=== PATIENT | female | born 1960 | race Caucasian/White ===

== ENCOUNTER 2019-12-04 10:57 | Day surgery (SDC) | payer OTHER ==
[~2019-12-04 10:57] MED LIST: Cefuroxime 10 MG/ML SYRINGE EYERT SCH; Lidocaine 1% PF 2 ML SDV INJECT SCH; Pilocarpine 4% Ophth Soln 15 ML Bot EYERT SCH
[2019-12-04] MEDS: Polymyxin B/Trimethoprim 10 ML Bottle EYERT SCH ×3 (11:05→13:23)
[2019-12-04] MEDS: Brimonidine 0.2% Ophth Soln 5 ML Bottle EYERT SCH ×3 (11:10→13:23)
[2019-12-04] MEDS: Phenylephrine 2.5% Ophth Soln 2 ML Bot EYERT SCH ×5 (11:15→13:02)
[2019-12-04] MEDS: Tropicamide 1% Ophth Soln 15 ML Bottle EYERT SCH ×4 (11:20→12:01)
[2019-12-04] MEDS: Tetracaine HCl/PF 0.5% 4 ML Bottle EYEBOTH SCH ×4 (12:04→13:11)
--- NOTE | 2019-12-04 12:30 | PCM.PREANE ---
Preanesthetic Assessment - Procedure Proposed Procedure: right eye cataract extraction with IOL implant - Anesthesia/Transfusion/Family Hx Anesthesia History: Prior Anesthesia Reaction (screams when wakes up) Family History of Anesthesia Reaction: No Transfusion History: No Prior Transfusion(s) - Review of Systems General: No Symptoms Pulmonary: Shortness of Breath Cardiovascular: Other (anxiety induced) Gastrointestinal: Nausea Neurological: Numbness (hands), Tingling (hands) Other: Reports: Depression, Anxiety - Physical Assessment NPO Status Date: 12/04/19 NPO Status Time: 04:30 Vital Signs: Last Vital Signs Temp 37.1 C 12/04/19 10:55 Pulse 64 12/04/19 10:55 Resp 16 12/04/19 10:55 BP 127/66 12/04/19 10:55 Pulse Ox 99 12/04/19 10:55 Height: 1.63 m Weight: 61.235 kg ASA Class: 3 Mental Status: Alert & Oriented x3 Airway Class: Mallampati = 1 Dentition: Reports: Broken Tooth/Teeth, Missing Tooth/Teeth Thyro-Mental Finger Breadths: 3 Mouth Opening Finger Breadths: 2 ROM/Head Extension: Full Lungs: Clear to Auscultation, Normal Respiratory Effort Cardiovascular: Regular Rate, Regular Rhythm - Allergies Allergies/Adverse Reactions: Allergies Allergy/AdvReac Type Severity Reaction Status Date / Time epinephrine Allergy Airway Verified 12/03/19 13:49 Tightness Penicillins Allergy Airway Verified 12/03/19 13:49 Tightness aspirin AdvReac Headache Verified 12/03/19 14:18 - Blood Blood Available: No Product(s) Available: None - Anesthesia Plan Pre-Op Medication Ordered: Anxiolytic (.5 ativan PO) - Acknowledgements Anesthesia Type Planned: MAC Pt an Appropriate Candidate for the Planned Anesthesia: Yes Alternatives and Risks of Anesthesia Discussed w Pt/Guardian: Yes Pt/Guardian Understands and Agrees with Anesthesia Plan: Yes PreAnesthesia Questionnaire - HOME MEDS Home Medications: Home Meds Albuterol [Proair HFA] 1 - 2 puff INH Q4H PRN 12/03/19 [History] - CURRENT (IN HOUSE) MEDS Current Meds: Current Medications Brimonidine Tartrate (Alphagan 0.2% Ophth Soln) 0 ml EYERT ASDIRECTED RELL Stop: 12/04/19 18:00 Last Admin: 12/04/19 11:53 Dose: 1 drop Documented by: Cefuroxime Sodium (Zinacef) 0 mg EYERT ASDIRECTED RELL Stop: 12/04/19 18:00 Lidocaine HCl (Xylocaine-Mpf 1%) 0 ml INJECT ASDIRECTED RELL Stop: 12/04/19 18:00 Phenylephrine HCl (Americo-Synephrine 2.5% Ophth Soln) 0 ml EYERT ASDIRECTED RELL Stop: 12/04/19 18:00 Last Admin: 12/04/19 11:57 Dose: 1 drop Documented by: Pilocarpine HCl (Pilocar 4% Ophth Soln) 0 ml EYERT ASDIRECTED RELL Stop: 12/04/19 18:00 Polymyxin/Trimethoprim Sulfate (Polytrim Ophth Soln) 0 ml EYERT ASDIRECTED RELL Stop: 12/04/19 18:00 Last Admin: 12/04/19 11:49 Dose: 1 drop Documented by: Tetracaine HCl (Tetracaine 0.5% Steri-Unit Cande) 0 ml EYEBOTH ASDIRECTED RELL Stop: 12/04/19 18:00 Last Admin: 12/04/19 12:11 Dose: 1 drop Documented by: Tropicamide (Mydriacyl 1% Ophth Soln) 0 ml EYERT ASDIRECTED RELL Stop: 12/04/19 18:00 Last Admin: 12/04/19 12:01 Dose: 1 drop Documented by:
[2019-12-04] MEDS ORDERED: LORazepam 0.5 MG Tab PO ONE (12:31)
--- NOTE | 2019-12-04 13:18 | PCM48HPAN ---
Post Anesthesia Note - EVALUATION WITHIN 48HRS OF ANESTHETIC Vital Signs in Normal Range: Yes Patient Participated in Evaluation: Yes Respiratory Function Stable: Yes Airway Patent: Yes Cardiovascular Function Stable: Yes Hydration Status Stable: Yes Pain Control Satisfactory: Yes Nausea and Vomiting Control Satisfactory: Yes Mental Status Recovered: Yes Vital Signs: Last Vital Signs Temp 98.7 F 12/04/19 10:55 Pulse 64 12/04/19 10:55 Resp 16 12/04/19 10:55 BP 127/66 12/04/19 10:55 Pulse Ox 99 12/04/19 10:55 127/73 HR 50, RR 10, SpO2 99%RA
== END 2019-12-04 13:59 | disposition home or self-care (01) ==
LOC: JD.SDS 10:57
PROVIDERS: ATTEND Ophthalmology
DX: H25.813 Combined forms of age-related cataract, bilateral (principal); H40.053 Ocular hypertension, bilateral; H16.103 Unspecified superficial keratitis, bilateral; H02.831 Dermatochalasis of right upper eyelid; H02.834 Dermatochalasis of left upper eyelid; H16.223 Keratoconjunctivitis sicca, not specified as Sjogren's, bilateral; F41.9 Anxiety disorder, unspecified; F32.9 Major depressive disorder, single episode, unspecified; J44.9 Chronic obstructive pulmonary disease, unspecified; Z88.0 Allergy status to penicillin; Z88.6 Allergy status to analgesic agent; Z88.8 Allergy status to other drugs, medicaments and biological substances; Z87.891 Personal history of nicotine dependence
CPT/HCPCS: 66984; A9270; J0697; J2001; C1780

== ENCOUNTER 2020-01-08 09:16 | Day surgery (SDC) | payer OTHER ==
[~2020-01-08 09:16] MED LIST changes: +Cefuroxime 10 MG/ML SYRINGE EYELF SCH; -Cefuroxime 10 MG/ML SYRINGE EYERT SCH; +Pilocarpine 4% Ophth Soln 15 ML Bot EYELF SCH; -Pilocarpine 4% Ophth Soln 15 ML Bot EYERT SCH
[2020-01-08] MEDS: Polymyxin B/Trimethoprim 10 ML Bottle EYELF SCH ×3 (09:26→11:01)
[2020-01-08] MEDS ORDERED: LORazepam 1 MG Tab PO SCH (09:30)
[2020-01-08] MEDS: Brimonidine 0.2% Ophth Soln 5 ML Bottle EYELF SCH ×3 (09:32→11:01)
--- NOTE | 2020-01-08 09:35 | PCM.PREANE ---
Preanesthetic Assessment - Anesthesia/Transfusion/Family Hx Anesthesia History: Prior Anesthesia Reaction (screams when wakes up) Family History of Anesthesia Reaction: No Transfusion History: No Prior Transfusion(s) - Review of Systems General: No Symptoms Pulmonary: Other (asthma, rarely uses inhaler) Cardiovascular: No Symptoms Gastrointestinal: No Symptoms Neurological: No Symptoms, Numbness (in arms) Other: Reports: Anxiety (very anxious, will give po ativan) - Physical Assessment Height: 1.63 m Weight: 62.596 kg ASA Class: 2 Mental Status: Alert & Oriented x3 Airway Class: Mallampati = 2 Dentition: Reports: Normal Dentition Thyro-Mental Finger Breadths: 3 Mouth Opening Finger Breadths: 3 ROM/Head Extension: Full Lungs: Clear to Auscultation, Normal Respiratory Effort Cardiovascular: Regular Rate, Regular Rhythm - Allergies Allergies/Adverse Reactions: Allergies Allergy/AdvReac Type Severity Reaction Status Date / Time epinephrine Allergy Airway Verified 01/07/20 09:53 Tightness Penicillins Allergy Airway Verified 01/07/20 09:53 Tightness aspirin AdvReac Headache Verified 01/07/20 09:53 - Blood Blood Available: No Product(s) Available: None - Anesthesia Plan Pre-Op Medication Ordered: None - Acknowledgements Anesthesia Type Planned: MAC Pt an Appropriate Candidate for the Planned Anesthesia: Yes Alternatives and Risks of Anesthesia Discussed w Pt/Guardian: Yes Pt/Guardian Understands and Agrees with Anesthesia Plan: Yes PreAnesthesia Questionnaire - HOME MEDS Home Medications: Home Meds Albuterol [Proair HFA] 1 - 2 puff INH Q4H PRN 12/03/19 [History] - CURRENT (IN HOUSE) MEDS Current Meds: Current Medications Brimonidine Tartrate (Alphagan 0.2% Oph Soln) 0 ml EYELF ASDIRECTED RELL Stop: 01/08/20 20:00 Cefuroxime Sodium (Zinacef) 0 mg EYELF ASDIRECTED RELL Stop: 01/08/20 20:00 Lidocaine HCl (Xylocaine-Mpf 1%) 0 ml INJECT ASDIRECTED RELL Stop: 01/08/20 20:00 Lorazepam (Ativan) 1 mg PO ONETIME RELL Phenylephrine HCl (Americo-Synephrine 2.5% Oph Soln) 0 ml EYELF ASDIRECTED RELL Stop: 01/08/20 20:00 Pilocarpine HCl (Pilocar 4% Ophth Soln) 0 ml EYELF ASDIRECTED RELL Stop: 01/08/20 20:00 Polymyxin/Trimethoprim Sulfate (Polytrim Ophth Soln) 0 ml EYELF ASDIRECTED RELL Stop: 01/08/20 20:00 Last Admin: 01/08/20 09:26 Dose: 1 drop Documented by: Tetracaine HCl (Tetracaine 0.5% Steri-Unit Cande) 0 ml EYEBOTH ASDIRECTED RELL Stop: 01/08/20 20:00 Tropicamide (Mydriacyl 1% Ophth Soln) 0 ml EYELF ASDIRECTED RELL Stop: 01/08/20 20:00
[2020-01-08] MEDS: Phenylephrine 2.5% Ophth Soln 2 ML Bot EYELF SCH ×5 (09:37→10:42)
[2020-01-08] MEDS: Tropicamide 1% Ophth Soln 15 ML Bottle EYELF SCH ×4 (09:40→10:21)
[2020-01-08] MEDS: Tetracaine HCl/PF 0.5% 4 ML Bottle EYEBOTH SCH ×4 (10:25→10:47)
--- NOTE | 2020-01-08 11:04 | PCM48HPAN ---
Post Anesthesia Note - EVALUATION WITHIN 48HRS OF ANESTHETIC Vital Signs in Normal Range: Yes Patient Participated in Evaluation: Yes Respiratory Function Stable: Yes Airway Patent: Yes Cardiovascular Function Stable: Yes Hydration Status Stable: Yes Pain Control Satisfactory: Yes Nausea and Vomiting Control Satisfactory: Yes Mental Status Recovered: Yes Vital Signs: Last Vital Signs Temp 36.1 C 01/08/20 09:10 Pulse 55 L 01/08/20 09:10 Resp 16 01/08/20 09:10 BP 146/76 H 01/08/20 09:10 Pulse Ox 98 01/08/20 09:10
== END 2020-01-08 11:13 | disposition home or self-care (01) ==
LOC: JD.SDS 09:16
PROVIDERS: ATTEND Ophthalmology
DX: H25.812 Combined forms of age-related cataract, left eye (principal); H21.81 Floppy iris syndrome; H21.42 Pupillary membranes, left eye; F41.9 Anxiety disorder, unspecified; J44.9 Chronic obstructive pulmonary disease, unspecified; Z88.0 Allergy status to penicillin; Z88.8 Allergy status to other drugs, medicaments and biological substances; Z98.41 Cataract extraction status, right eye
CPT/HCPCS: 66982; A9270; C1780; J0697; J2001